=== PATIENT | female | born 1975 | race Caucasian/White ===

== ENCOUNTER 2018-03-22 18:09 | Emergency (ER) | payer MEDICAID ==
[~2018-03-22] VITALS: Ht 152.4 cm; Wt 102.5 kg
[2018-03-22 18:38] VITALS: Ht 152.4 cm; Wt 102.5 kg
[2018-03-22 22:13] LABS: BASOPHIL % 0.3 % (0-2); PLATELET COUNT 228 x10^3mcL (130-400); RED CELL DISTRIBUTION WIDTH 13.9 % (11.5-14.5)
[2018-03-22 22:22] LABS: CALCIUM 9.1 mg/dL (8.5-10.1); CARBON DIOXIDE 23.9 mmol/L (21-32); CHLORIDE SERUM 102 mmol/L (98-107); CREATININE SERUM 0.6 mg/dL (0.6-1.0); GFR1 > 60 mL/min; GLUCOSE SERUM 181 mg/dL (74-106); POTASSIUM SERUM 3.4 mmol/L (3.5-5.1); SODIUM SERUM 139 mmol/L (136-145)
[2018-03-22 22:34] LABS: ALKALINE PHOSPHATASE 67 U/L (46-116); ALT/SGPT 43 U/L (14-59); AMYLASE 33 U/L (25-115); AST/SGOT 32 U/L (15-37); BILIRUBIN TOTAL 0.5 mg/dL (0.20-1.00); CHOLESTEROL 176 mg/dL (<200); HDL CHOLESTEROL 38 mg/dL (40-60); LIPASE 86 IU/L (73-393); T4(THYROXINE) 8.1 ug/dL (4.7-13.3); TOTAL PROTEIN, SERUM 7.7 g/dL (6.4-8.2)
[2018-03-22 22:49] LABS: microscopic required? YES; urine erythrocyte 3+ (NEGATIVE)
[2018-03-22 22:58] LABS: AMPHETAMINE QUAL UR NONE DETECTED (See below)
[2018-03-23 00:42] VITALS: BP 127/93
== END 2018-03-23 00:42 | disposition home or self-care (01) ==
LOC: ED 18:09
PROVIDERS: Emergency Medicine
DX: I10 Essential (primary) hypertension (principal); N39.0 Urinary tract infection, site not specified; E11.9 Type 2 diabetes mellitus without complications; E66.9 Obesity, unspecified
CPT/HCPCS: 36415; 82962; G0480; Q0092